=== PATIENT | female | born 1955 | race Caucasian/White ===

== ENCOUNTER 2019-11-18 07:03 | Day surgery (SDC) | payer BC ==
[~2019-11-18 07:03] MED LIST: Sodium Chloride 0.9% 10 ML Syringe FLUSH PRN
[2019-11-18] MEDS ORDERED: Propofol 200 MG/20 ML SDV IV ONE (07:04)
[2019-11-18] MEDS: Lactated Ringers 1,000 ML IV SCH (07:58)
--- NOTE | 2019-11-18 09:50 | PCM.OPNOTE ---
- General Post-Op/Procedure Note Date of Surgery/Procedure: 11/18/19 Operative Procedure(s): c scope with biopsy Findings: polyps cecum, ascending and rectum Pre Op Diagnosis: personal hx of colon polyps Post-Op Diagnosis: polyps cecum, ascending and rectum Anesthesia Technique: MAC Primary Surgeon: Kurtis Cooley Anesthesia Provider: Cricket Rodrigues Pathology: polyps cecum, ascending and rectum Complications: None Condition: Good Free Text/Narrative:: see diction
[2019-11-18 10:11] VITALS: BP 125/67; PULSE 66
--- NOTE | 2019-11-19 08:17 | OR ---
DATE OF OPERATION: 11/18/2019 SURGEON: Kurtis Cooley MD PROCEDURE PERFORMED: Colonoscopy with cold forceps biopsy. PREOPERATIVE DIAGNOSIS: Personal history of colon polyps. POSTOPERATIVE DIAGNOSIS: Some mucosal changes in the cecum, ascending colon polyp, and rectal polyp. INDICATIONS FOR PROCEDURE: This is a 63-year-old white female. She has a personal history of colon polyps. She was offered and accepted routine followup scope at the 5-year point. DESCRIPTION OF OPERATION: After an excellent IV sedation was administered, digital rectal exam was performed. No marked abnormality was noted. The flexible colonoscope was inserted and advanced to the cecum without difficulty. Prep was excellent. Following findings were noted: In the ascending colon and the cecum, there were several spots that looked like they could be adenomatous changes. These areas were biopsied and submitted in one container. Mid ascending colon, small polypoid lesion, biopsied with cold biopsy forceps and submitted in one container. Transverse colon, unremarkable. Descending colon, unremarkable. Sigmoid, unremarkable. Rectum, a small polyp noted, biopsied and submitted. The patient tolerated the procedure well, was taken to Recovery. Results will be sent to her via letter. /[id number] /MODL
== END 2019-11-18 10:21 | disposition home or self-care (01) ==
LOC: FB.SDS 07:03
PROVIDERS: ATTEND Surgery
DX: Z12.11 Encounter for screening for malignant neoplasm of colon (principal); D12.2 Benign neoplasm of ascending colon; K62.1 Rectal polyp; Z11.59 Encounter for screening for other viral diseases; Z86.010 Personal history of colon polyps; Z98.890 Other specified postprocedural states
CPT/HCPCS: 88305; J2704; J7120; U0002

== ENCOUNTER → 2025-02-02 | Day surgery (SDC) | payer BC, MEDICARE ==
[~2025-02-02] MED LIST changes: +Propofol 200 MG/20 ML SDV IV ONE; -Sodium Chloride 0.9% 10 ML Syringe FLUSH PRN
[2025-02-02] MEDS: Lactated Ringers 1,000 ML IV SCH (08:43)
[2025-02-02 10:41] VITALS: BP 106/67; PULSE 70
== END | disposition home or self-care (01) ==
LOC: FB.SDS 07:48
PROVIDERS: ATTEND Surgery
DX: Z12.11 Encounter for screening for malignant neoplasm of colon (principal); D12.6 Benign neoplasm of colon, unspecified; Z80.0 Family history of malignant neoplasm of digestive organs; K63.89 Other specified diseases of intestine; I10 Essential (primary) hypertension; E03.9 Hypothyroidism, unspecified; E66.9 Obesity, unspecified; Z79.82 Long term (current) use of aspirin; Z68.28 Body mass index [BMI] 28.0-28.9, adult; Z79.899 Other long term (current) drug therapy; Z79.890 Hormone replacement therapy; Z86.0101 Personal history of adenomatous and serrated colon polyps
CPT/HCPCS: 00811; 45385; 88305; A9270; J2003; J2704; J7120